=== PATIENT | female | born 1950 | race African-American/Black ===

== ENCOUNTER 2022-08-02 07:49 | Observation (INO) | payer MEDICARE ==
[~2022-08-02] VITALS: Ht 162.6 cm; Wt 62.1 kg
[~2022-08-02 07:49] MED LIST: ALLOPURINOL300 MG PO; AMLODIPINE BESY10 MG PO; CELECOXIB 200 MG CAP ONE; DEXAMETHASONE SOD PHOS 10 MG/1 ML VIAL ONE; FOLIC ACID0.4 MG PO; GABAPENTIN 300 MG CAP ONE; LIPITOR10 MG PO; MECLIZINE HCL12.5 MG PO; OMEPRAZOLE40 MG PO; SODIUM CHLORIDE 0.9% 500ML 500 ML ONE; TRANEXAMIC ACID 20 ML ONE; VIT B1 PO; Vancomycin IV 1,000 MG ONE
[2022-08-02] MEDS ORDERED: ROPIVACAINE 246.25 MG, EPINEPHRINE HCL 1:1000 1ML 0.5 MG, CLONIDINE HCL 0.08 MG, KETORO... INJ ONE ×5 (08:00)
[2022-08-02] MEDS ORDERED: ACETAMINOPHEN 650 MG SUPP PR PRN (08:45)
[2022-08-02] MEDS ORDERED: ONDANSETRON HCL INJ 2MG/ML 2ML 2 MG/ML VIAL IV PRN (08:45)
[2022-08-02] MEDS ORDERED: DIPHENHYDRAMINE HCL INJ 50 MG/ML VIAL IV PRN (08:45)
[2022-08-02] MEDS ORDERED: HYDROCODONE/APAP 5MG-325MG TAB PO PRN (08:45)
[2022-08-02] MEDS ORDERED: ZOLPIDEM TARTRATE 5 MG TAB PO PRN (08:45)
[2022-08-02] MEDS ORDERED: DOCUSATE SODIUM 100 MG CAP PO PRN (08:45)
[2022-08-02] MEDS ORDERED: KETOROLAC TROMETHAMINE 30 MG/ML VIAL IV PRN (08:45)
[2022-08-02] MEDS ORDERED: HYDROCODONE/APAP 7.5MG-325MG 1 EA TAB PO PRN (08:45)
[2022-08-02] MEDS: ASPIRIN 325 MG TAB PO SCH ×2 (09:00→17:53)
[2022-08-02] MEDS ORDERED: HYDROMORPHONE 1MG/1ML INJ ONE (09:11)
[2022-08-02] MEDS ORDERED: FENTANYL CITRATE/PF 100MCG/2 ML INJ ONE ×2 (10:42→13:14)
[2022-08-02] MEDS ORDERED: ONDANSETRON HCL INJ 2MG/ML 2ML 2 MG/ML VIAL ONE ×2 (10:59→12:38)
[2022-08-02] MEDS ORDERED: LIDOCAINE HCL 1% LOCAL INJ 20 ML VIAL ONE (10:59)
[2022-08-02] MEDS ORDERED: METOCLOPRAMIDE HCL 10 MG/2ML VIAL ONE (11:07)
[2022-08-02 11:45] VITALS: BP_SYST 120; BP_SYST 132; BP_DIAS 83; BP_DIAS 86
[2022-08-02 12:00] VITALS: BP 120/86
[2022-08-02] MEDS ORDERED: SEVOFLURANE INHAL SOLN 250 ML PEN BTL ONE (12:38)
[2022-08-02] MEDS ORDERED: PROPOFOL IV EMULSION 10 MG/ML 20 ML VIAL ONE (12:38)
[2022-08-02] MEDS ORDERED: LIDOCAINE HCL 2% LOCAL INJ 5 ML SDV VIAL INJ ONE (12:38)
[2022-08-02] MEDS ORDERED: POVIDONE IODINE 0.05% 0.05 % ML PO ONE (12:38)
[2022-08-02] MEDS: SODIUM CHLORIDE 0.9% 1000ML 1,000 ML IV SCH ×2 (12:50→17:53)
[2022-08-02] MEDS ORDERED: ROPIVACAINE 0.5% 5 MG/ML 30 ML SDV ONE (13:09)
[2022-08-02] MEDS ORDERED: MIDAZOLAM HCL 2 MG/2 ML VIAL ONE (13:14)
[2022-08-02] MEDS ORDERED: MECLIZINE HCL 12.5 MG TAB PO PRN (14:45)
[2022-08-02 15:55] VITALS: BP 113/75
[2022-08-02] MEDS ORDERED: CELECOXIB 200 MG CAP PO SCH (17:00)
[2022-08-02] MEDS ORDERED: ATORVASTATIN 20 MG TAB PO SCH (21:00)
[2022-08-03] MEDS ORDERED: PANTOPRAZOLE SOD 40 MG TABEC PO SCH (07:30)
[2022-08-03] MEDS ORDERED: ACETAMINOPHEN 1000 MG/100 ML IV PRN (08:45)
[2022-08-03] MEDS ORDERED: NON-FORMULARY MEDICATION (Folic Acid* 0.4 MG) PO SCH (09:00)
[2022-08-03] MEDS ORDERED: AMLODIPINE BESYLATE 10 MG TAB PO SCH (09:00)
[2022-08-03] MEDS ORDERED: THIAMINE HCL 100 MG TAB PO SCH (09:00)
[2022-08-03] MEDS ORDERED: ALLOPURINOL 300 MG TAB PO SCH (09:00)
== END 2022-08-02 19:54 | disposition home or self-care (01) ==
LOC: OR 07:49 → PACU V 08:44 → MED/SURG 11:29
PROVIDERS: ADMIT Specialist; ATTEND Specialist
DX: M17.0 Bilateral primary osteoarthritis of knee (principal); I13.10 Hypertensive heart and chronic kidney disease without heart failure, with stage 1 through stage 4 chronic kidney disease, or unspecified chronic kidney disease; N18.30 Chronic kidney disease, stage 3 unspecified; K21.9 Gastro-esophageal reflux disease without esophagitis; E78.5 Hyperlipidemia, unspecified; Z01.818 Encounter for other preprocedural examination; Z20.822 Contact with and (suspected) exposure to COVID-19
CPT/HCPCS: 27447; 71046; 73560; 86850; 86900; 86920; 94799; 96361; 97110; 97116; 97162; 97530; C1713; G0378; J0171; J0690; J1100; J1170; J1885; J2001 ×2; J2250; J2405; J2704; J2765; J2795; J3010; J3370; J7030; J7040

== ENCOUNTER → 2025-07-21 | Day surgery (SDC) | payer MEDICARE ==
[2025-07-18 13:51] LABS: BASOPHILS % 0.4 % (0.0-1.0); EOSINOPHILS % 3.7 % (0.0-6.0); LYMPHOCYTES % 20.9 % (18.0-39.1); MONOCYTES % 5.9 % (4.4-11.3); NEUTROPHILS % 69.0 % (38.7-80.0); RED CELL DISTRIBUTION WIDTH 13.9 % (11.7-14.4)
[2025-07-18 14:15] LABS: EST GLOMERULAR FILTRATION RATE 55.0 ML/MIN (>=60)
[~2025-07-21] MED LIST changes: +ACETAMINOPHEN 1000 MG/100 ML 100 ML IV ONE; +ACETAMINOPHEN 1000 MG/100 ML IV PRN; +ALEVE220 M1 PO; +ASPIRIN 325 MG TAB PO SCH; +ASPIRIN81 MG PO; +BUPIVACAINE 0.25% 30ML SDV ONE; +CELECOXIB 100 MG CAP PO SCH; -CELECOXIB 200 MG CAP ONE; -DEXAMETHASONE SOD PHOS 10 MG/1 ML VIAL ONE; +DEXAMETHASONE SOD PHOS INJ 4 MG/ML SDV ONE; +DIPHENHYDRAMINE HCL INJ 50 MG/ML VIAL IV PRN; +DOCUSATE SODIUM 100 MG CAP PO PRN; +EPINEPHRINE HCL 1:1000 1ML 1 MG/ML AMP ONE; +ESMOLOL HCL 100MG/10ML 10 MG/ML VIAL ONE; +FAMOTIDINE20 MG PO; +FENTANYL CITRATE/PF 100MCG/2 ML INJ ONE; -GABAPENTIN 300 MG CAP ONE; +GLYCOPYRROLATE INJ 0.2 MG/ML VIAL ONE; +HYDROCHLOROTHIA25 MG PO; +HYDROCODONE/APAP 5MG-325MG TAB PO PRN; +HYDROCODONE/APAP 7.5MG-325MG 1 EA TAB PO PRN; +KEPPRA XR750 MG PO; +LIDOCAINE HCL 2% LOCAL INJ 5 ML SDV VIAL INJ ONE; +MIDAZOLAM HCL 2 MG/2 ML VIAL ONE; +ONDANSETRON HCL INJ 2MG/ML 2ML 2 MG/ML VIAL IV PRN; +ONDANSETRON HCL INJ 2MG/ML 2ML 2 MG/ML VIAL ONE; +PROPOFOL IV EMULSION 10 MG/ML 20 ML VIAL ONE; +ROPIVACAINE/EPI/CLONIDINE/KET 50 ML SYRINGE INJ ONE; +SODIUM CHLORIDE 0.9% 1000ML 1,000 ML IV SCH; -SODIUM CHLORIDE 0.9% 500ML 500 ML ONE; -TRANEXAMIC ACID 20 ML ONE; +VITAMIN D310 MCG PO; -Vancomycin IV 1,000 MG ONE
[2025-07-21] MEDS: GABAPENTIN 300 MG CAP ONE (08:46)
[2025-07-21] MEDS: CEFAZOLIN SODIUM 2 GM ONE (08:47)
[2025-07-21] MEDS: LACTATED RINGER'S 1,000 ML ONE (08:47)
[2025-07-21] MEDS: CELECOXIB 200 MG CAP ONE (08:47)
[2025-07-21] MEDS: DEXAMETHASONE SOD PHOS 10 MG/1 ML VIAL ONE (08:47)
[2025-07-21] MEDS: KETOROLAC TROMETHAMINE 30 MG/ML VIAL ONE (12:17)
[2025-07-21] MEDS: HYDROCODONE/APAP 7.5MG-325MG 1 EA TAB PO ONE (12:32)
[2025-07-21 13:10] VITALS: BP 130/91; PULSE 75; RESP 16; O2SAT 97
== END | disposition home health service (06) ==
LOC: OR 08:05
PROVIDERS: ATTEND Specialist
DX: M17.12 Unilateral primary osteoarthritis, left knee (principal); Z96.651 Presence of right artificial knee joint; I10 Essential (primary) hypertension; E78.5 Hyperlipidemia, unspecified; K21.9 Gastro-esophageal reflux disease without esophagitis; E66.811 Obesity, class 1; Z68.34 Body mass index [BMI] 34.0-34.9, adult; Z79.82 Long term (current) use of aspirin; Z79.899 Other long term (current) drug therapy; Z79.1 Long term (current) use of non-steroidal anti-inflammatories (NSAID); Z01.810 Encounter for preprocedural cardiovascular examination; Z01.812 Encounter for preprocedural laboratory examination
CPT/HCPCS: 27447; 36415; 71046; 73560; 80048; 85025; 86850; 86900; 93005; 97116; 97161; C1713; C1776 ×3; J0131; J0169; J1100 ×2; J1885; J2003; J2250; J2405; J2704; J3010; J7121